=== PATIENT | female | born 1955 | race Caucasian/White ===

== ENCOUNTER → 2017-09-29 | Outpatient (CLI) | payer BC ==
--- NOTE | 2017-09-29 09:45 | RAD ---
DATE: 09/29/2017 EXAM: MAMMO SE SCREENING BILATERAL HISTORY: Screening Mammogram COMPARISON: Left breast ultrasound 10/02/2016, bilateral screening mammogram 09/28/2016, 10/03/2015. This study was interpreted with the benefit of Computerized Aided Detection (CAD). The breast parenchyma is heterogeneously dense, which could reduce sensitivity of mammography. Breast parenchyma level C. FINDINGS: Bilateral digital 2-D and 3-D tomosynthesis CC and MLO views. Interval increase in a left breast mass at the 1:00 position. No suspicious mass, calcification or architectural distortion in the right breast. Right breast biopsy clip again noted. IMPRESSION: Interval increase in left breast 1:00 mass. Limited left breast ultrasound is recommended for further evaluation. BI-RADS CATEGORY: 0 INCOMPLETE: NEEDS ADDITIONAL IMAGING EVALUATION AND/OR PRIOR MAMMOGRAMS FOR COMPARISON. RECOMMENDED FOLLOW-UP: ADD ADDITIONAL IMAGING PQRS compliance statement: Patient information was entered into a reminder system with a target due date for the next mammogram. Mammography is a sensitive method for finding small breast cancers, but it does not detect them all and is not a substitute for careful clinical examination. A negative mammogram does not negate a clinically suspicious finding and should not result in delay in biopsying a clinically suspicious abnormality. "Our facility is accredited by the [employer] Mammography Program."
== END | disposition home or self-care (01) ==
LOC: MAMMO 07:58
PROVIDERS: ATTEND Nurse Practitioner Family
DX: Z12.31 Encounter for screening mammogram for malignant neoplasm of breast (principal)
CPT/HCPCS: 77063; 77067

== ENCOUNTER → 2017-10-11 | Outpatient (CLI) | payer BC ==
--- NOTE | 2017-10-11 10:40 | RAD ---
LEFT BREAST SONOGRAPHY Clinical indications: Further evaluation of enlarging nodule of the left breast seen on screening mammogram. Comparison: Sonogram dated October 02, 2016 and recent mammogram dated September 29, 2017. Findings: High-resolution sonography of the 1:00 position of the left breast demonstrates a cyst corresponding to the previous left breast sonogram located 11 cm from the nipple. In today's study, it measures 26 mm in greatest dimension. It measured 18 mm previously. IMPRESSION: Mammographic nodule corresponds to a simple cyst of the 1:00 position of the left breast which has increased in size from the previous sonogram dated October 02, 2016. BI-RADS Category 2 benign finding. The patient information was entered into the data reminder system with a target due date for the next mammogram of September 30, 2018.
== END | disposition home or self-care (01) ==
LOC: US 09:28
PROVIDERS: ATTEND Nurse Practitioner Family
DX: N63.20 Unspecified lump in the left breast, unspecified quadrant (principal)
CPT/HCPCS: 76641

== ENCOUNTER → 2020-09-24 | Outpatient (CLI) | payer MEDICARE ==
--- NOTE | 2020-09-25 08:35 | RAD ---
EXAM: Dual energy x-ray absorptiometry (DEXA). HISTORY: Screening. COMPARISON: None available. TECHNIQUE: Dual energy x-ray absorptiometry of the right femur was performed. Calculation of bone mi neral density based on standard deviations above or below the expected young adult normal value (T-sc ore) was completed. FINDINGS: The average total bone mineral density in the right femur is 0.735 g/cmxcm, corresponding with a T-s core of -1.8. IMPRESSION: Findings are within the range of osteopenia with relation of the right femur. Note: Definitions established by the World Health Organization: 1. Normal: T-score is -1.0 or above. 2. Osteopenia: T-score is between -1.0 and -2.5 . 3. Osteoporosis: T-score is -2.5 or below. Electronically signed by: Yeni Phillips MD (09/25/2020 8:32 AM) [id number]
== END ==
LOC: DXRAD 11:16
PROVIDERS: ATTEND Family Medicine
DX: M85.88 Other specified disorders of bone density and structure, other site (principal)
CPT/HCPCS: 77080

== ENCOUNTER → 2021-04-28 | Outpatient (CLI) | payer MEDICARE ==
--- NOTE | 2021-04-28 09:55 | RAD ---
XR KNEE _3 VIEWS_LT Clinical indications: Reason: LEFT KNEE PAIN Findings: No acute fracture or dislocation or osteolytic process is evident. There is moderate joint space narrowing and spurring and subchondral sclerosis of the medial tibiofemoral joint compartment. The lateral tibiofemoral joint compartment is unremarkable. There is mild spurring without joint spa ce narrowing of the patellofemoral joint compartment. No prominent knee joint effusion is seen radiog raphically. IMPRESSION: Bicompartmental primary degenerative osteoarthritis of the left knee. Electronically signed by: Reddy Prakash MD (04/28/2021 9:52 AM) [id number]
== END ==
LOC: RAD 09:09
PROVIDERS: ATTEND Nurse Practitioner Family
DX: M17.12 Unilateral primary osteoarthritis, left knee (principal); M76.892 Other specified enthesopathies of left lower limb, excluding foot; M25.862 Other specified joint disorders, left knee; M25.562 Pain in left knee
CPT/HCPCS: 73562

== ENCOUNTER → 2021-10-07 | Outpatient (CLI) | payer MEDICARE, BC ==
--- NOTE | 2021-10-09 10:25 | RAD ---
INDICATION : Routine Screening. COMPARISON: Priors including September 2019 TECHNIQUE: Standard mammogram screening views of the bilateral breasts were obtained with 3D tomosynt hesis. CAD was utilized. FINDINGS: The breasts are heterogenous density. No definite suspicious mass. IMPRESSION: BI-RADS Category 1: Negative. Recommend repeat screening examination in one year. The patient was placed into the recall system with a suggested recall date for follow up imaging. Mammography is the most sensitive method for finding small breast cancers, but it does not detect the m all and is not a substitute for careful clinical examination. A negative mammogram does not negate a clinically suspicious finding and should not result in delay in biopsying a clinically suspicious abnormality. Electronically signed by: Oj Barone MD (10/09/2021 10:23 AM) [id number]
== END ==
LOC: MAMMO 09:42
PROVIDERS: ATTEND Family Medicine
DX: Z12.31 Encounter for screening mammogram for malignant neoplasm of breast (principal)
CPT/HCPCS: 77063; 77067